=== PATIENT | male | born 2000 | race Caucasian/White ===

== ENCOUNTER 2019-11-23 19:35 | Emergency (ER) | payer MEDICAID, OTHER ==
[~2019-11-23] VITALS: Ht 165.1 cm; Wt 53.4 kg
[~2019-11-23 19:35] MED LIST: HYDR28CR33 TP; ONDA8TAB6 PO; PRED5SOL10 PO; vistaril
[2019-11-23 20:28] LABS: BASOPHILS % (AUTO) 0.2 % (0-1); EOSINOPHILS % (AUTO) 0.5 % (0-6); HEMATOCRIT 48.4 % (42.0-52.0); HEMOGLOBIN 16.7 g/dl (14.0-17.9); LYMPHOCYTES # (AUTO) 1.4 X10'3 (1.1-4.8); MEAN CORPUSCULAR HEMOGLOBIN 29.8 PG (27.0-31.0); MEAN CORPUSCULAR HGB CONC 34.5 g/dL (33.0-36.5); MEAN CORPUSCULAR VOLUME 86.3 FL (78-98); MONOCYTES # (AUTO) 0.8 X10'3 (0-0.9); MONOCYTES % (AUTO) 9.5 % (2-12); NEUTROPHILS # (AUTO) 5.7 X10'3 (1.8-7.7); NEUTROPHILS % (AUTO) 71.8 % (42-75); PLATELET COUNT 256 X10'3 (140-440); RED CELL DISTRIBUTION WIDTH 13.2 % (11.5-14.5); WHITE BLOOD COUNT 7.9 X10'3 (4.5-11.0)
[2019-11-23 20:35] LABS: ALANINE AMINOTRANSFERASE 12 U/L (12-78); ALBUMIN 4.7 G/DL (3.4-5.0); ALBUMIN/GLOBULIN RATIO 1.5 (1.1-1.5); ALKALINE PHOSPHATASE 80 IU/L (20-180); ANION GAP 5 (8-16); ASPARTATE AMINO TRANSFERASE 9 U/L (10-37); BILIRUBIN,TOTAL 1.4 MG/DL (0.1-1.0); BLOOD UREA NITROGEN 13 MG/DL (7-18); BUN/CREATININE RATIO 14.6 (5.4-32.0); CHLORIDE 106 MMOL/L (99-107); CREATININE 0.89 MG/DL (0.60-1.10); ETHANOL < 0.010 GM/DL (0.0-0.010); GLUCOSE 95 MG/DL (70-104); POTASSIUM 3.7 MMOL/L (3.5-5.1); SODIUM 138 MMOL/L (135-145); TOTAL PROTEIN 7.9 G/DL (6.4-8.2); eGFR > 90 ML/MIN
[2019-11-23 20:41] LABS: ACETAMINOPHEN < 2.0 UG/ML (10-30)
[2019-11-23 22:42] LABS: CLARITY,URINE CLEAR (Clear); COLOR,URINE YELLOW (Yellow); GLUCOSE, URINE NEGATIVE (Neg); KETONES,URINE NEGATIVE (Neg); LEUKOCYTE ESTERASE ,URINE NEGATIVE (Neg); NITRITES, URINE NEGATIVE (Neg); OCCULT BLOOD,URINE NEGATIVE (Neg); PROTEIN,URINE NEGATIVE (Neg)
[2019-11-23 22:53] LABS: UA COLLECTION TYPE NON-SPECIFIED
[2019-11-23 22:55] LABS: URINE AMPHETAMINE SCREEN NEGATIVE (Neg); URINE BARBITUATE SCREEN NEGATIVE (Neg); URINE BENZODIAZEPINES SCREEN NEGATIVE (Neg); URINE CANNABINOID SCREEN POSITIVE (Neg); URINE COCAINE SCREEN NEGATIVE (Neg); URINE METHADONE SCREEN NEGATIVE (Neg); URINE OPIATE SCREEN NEGATIVE (Neg); URINE PHENCYCLIDINE SCREEN NEGATIVE (Neg)
--- NOTE | 2019-11-23 23:24 | NUR ---
PATIENT'S PACKET WAS SENT TO [facility].
[2019-11-24 05:20] VITALS: BP 107/53
--- NOTE | 2019-11-24 09:49 | NUR ---
5150 written, looking for placement
--- NOTE | 2019-11-24 11:00 | NUR ---
breaking primary RN, pt supine in bed asleep, regular breathing present
--- NOTE | 2019-11-24 11:36 | NUR ---
[facility] TSH requested by them and added to orders
--- NOTE | 2019-11-24 12:21 | NUR ---
Patient resting in bed with eyes closed, respirations normal.
--- NOTE | 2019-11-24 13:11 | NUR ---
Per Shannan patient will be picked up at 1330 by driver operator
== END 2019-11-24 14:00 ==
LOC: ER 19:36
DX: R45.851 Suicidal ideations (principal); R10.9 Unspecified abdominal pain; R07.89 Other chest pain; R06.02 Shortness of breath; Z72.89 Other problems related to lifestyle; Z79.899 Other long term (current) drug therapy
CPT/HCPCS: 36415; 80053; 80305; 80320; 80329; 81003; 84443; 85025; 99285

== ENCOUNTER → 2020-10-18 | Emergency (ER) | payer MEDICAID ==
[~2020-10-18] VITALS: Ht 165.1 cm; Wt 54.5 kg
[2020-10-18 06:47] VITALS: BP 120/72
[2020-10-18 09:36] LABS: BASOPHILS % (AUTO) 0.3 % (0-1); EOSINOPHILS # (AUTO) 0.1 X10'3 (0-0.9); EOSINOPHILS % (AUTO) 1.1 % (0-6); HEMATOCRIT 47.1 % (42.0-52.0); HEMOGLOBIN 16.2 g/dl (14.0-17.9); LYMPHOCYTES # (AUTO) 1.1 X10'3 (1.1-4.8); LYMPHOCYTES % (AUTO) 20.4 % (21-51); MEAN CORPUSCULAR HGB CONC 34.5 g/dL (33.0-36.5); MEAN CORPUSCULAR VOLUME 84.2 FL (78-98); MONOCYTES # (AUTO) 0.6 X10'3 (0-0.9); MONOCYTES % (AUTO) 11.5 % (2-12); NEUTROPHILS # (AUTO) 3.5 X10'3 (1.8-7.7); NEUTROPHILS % (AUTO) 66.7 % (42-75); PLATELET COUNT 208 X10'3 (140-440); RED CELL DISTRIBUTION WIDTH 13.4 % (11.5-14.5); WHITE BLOOD COUNT 5.2 X10'3 (4.5-11.0)
[2020-10-18 09:45] LABS: ALANINE AMINOTRANSFERASE 13 U/L (12-78); ALBUMIN 4.6 G/DL (3.4-5.0); ALBUMIN/GLOBULIN RATIO 1.5 (1.1-1.5); ALKALINE PHOSPHATASE 77 IU/L (46-116); ANION GAP 11 (8-16); ASPARTATE AMINO TRANSFERASE 8 U/L (10-37); BILIRUBIN,TOTAL 1.4 MG/DL (0.1-1.0); BLOOD UREA NITROGEN 20 MG/DL (7-18); BUN/CREATININE RATIO 22.5 (5.4-32.0); CHLORIDE 107 MMOL/L (99-107); CREATININE 0.89 MG/DL (0.60-1.10); GLUCOSE 97 MG/DL (70-104); POTASSIUM 4.6 MMOL/L (3.5-5.1); SODIUM 143 MMOL/L (135-145); TOTAL CARBON DIOXIDE 24.6 MMOL/L (24-32); TOTAL PROTEIN 7.7 G/DL (6.4-8.2); eGFR > 90 ML/MIN
== END | disposition home or self-care (01) ==
LOC: ER 06:24
DX: R07.89 Other chest pain (principal); Z72.89 Other problems related to lifestyle; Z79.899 Other long term (current) drug therapy
CPT/HCPCS: 36415; 71045; 80053; 84484; 85025; 93005; 99285

== ENCOUNTER 2021-02-20 06:14 | Emergency (ER) | payer MEDICAID ==
[~2021-02-20] VITALS: Ht 167.6 cm; Wt 57.2 kg
--- NOTE | 2021-02-20 06:37 | NUR ---
ROLO SEO, SISTER PHONE: [phone] PLEASE CALL PRN WITH INFO.
[2021-02-20] MEDS ORDERED: normal saline 1000ML IV soln IVB ONE (06:45)
[2021-02-20] MEDS ORDERED: metoclopramide 5 mg/ml inj IV ONE (06:45)
[2021-02-20] MEDS ORDERED: glycopyrrolate 0.2mg/ml inj IV ONE (06:45)
[2021-02-20] MEDS ORDERED: diphenhydrAMINE 50 mg/ml inj IV ONE (06:45)
[2021-02-20] MEDS ORDERED: morphine 2 MG/ML inj. syringe IV ONE (07:00)
[2021-02-20 08:01] LABS: BASOPHILS % (AUTO) 0.3 % (0-1); EOSINOPHILS # (AUTO) 0.1 X10'3 (0-0.9); EOSINOPHILS % (AUTO) 0.7 % (0-6); HEMATOCRIT 39.1 % (42.0-52.0); HEMOGLOBIN 13.8 g/dl (14.0-17.9); LYMPHOCYTES # (AUTO) 0.6 X10'3 (1.1-4.8); LYMPHOCYTES % (AUTO) 5.9 % (21-51); MEAN CORPUSCULAR HEMOGLOBIN 29.7 PG (27.0-31.0); MEAN CORPUSCULAR HGB CONC 35.2 g/dL (33.0-36.5); MEAN CORPUSCULAR VOLUME 84.2 FL (78-98); MEAN PLATELET VOLUME 7.8 FL (7.4-10.4); MONOCYTES # (AUTO) 1.1 X10'3 (0-0.9); MONOCYTES % (AUTO) 10.7 % (2-12); NEUTROPHILS # (AUTO) 8.5 X10'3 (1.8-7.7); NEUTROPHILS % (AUTO) 82.4 % (42-75); PLATELET COUNT 187 X10'3 (140-440); RED BLOOD COUNT 4.64 X10'6 (4.70-6.10); RED CELL DISTRIBUTION WIDTH 12.6 % (11.5-14.5); WHITE BLOOD COUNT 10.3 X10'3 (4.5-11.0)
[2021-02-20 08:46] LABS: ALANINE AMINOTRANSFERASE 12 U/L (12-78); ALBUMIN 3.5 G/DL (3.4-5.0); ALBUMIN/GLOBULIN RATIO 1.3 (1.1-1.5); ALKALINE PHOSPHATASE 46 IU/L (46-116); ANION GAP 9 (8-16); ASPARTATE AMINO TRANSFERASE 12 U/L (10-37); BLOOD UREA NITROGEN 13 MG/DL (7-18); BUN/CREATININE RATIO 18.6 (5.4-32.0); CALCIUM 8.1 MG/DL (8.5-10.1); CHLORIDE 110 MMOL/L (99-107); GLUCOSE 95 MG/DL (70-104); LIPASE < 50 U/L (73-393); POTASSIUM 3.7 MMOL/L (3.5-5.1); SODIUM 144 MMOL/L (135-145); TOTAL CARBON DIOXIDE 24.7 MMOL/L (24-32); TOTAL PROTEIN 6.2 G/DL (6.4-8.2); eGFR > 90 ML/MIN
[2021-02-20] MEDS ORDERED: ketorolac trometh. 30mg/ml inj. IV ONE (09:15)
[2021-02-20] MEDS ORDERED: mag hydrox/Alum hydrox/simeth 30ml oral suspension PO ONE (09:15)
[2021-02-20 09:33] LABS: CLARITY,URINE CLOUDY (Clear); COLOR,URINE YELLOW (Yellow); GLUCOSE, URINE NEGATIVE (Neg); KETONES,URINE NEGATIVE (Neg); LEUKOCYTE ESTERASE ,URINE NEGATIVE (Neg); NITRITES, URINE NEGATIVE (Neg); OCCULT BLOOD,URINE NEGATIVE (Neg); PROTEIN,URINE NEGATIVE (Neg)
[2021-02-20 09:34] LABS: UA COLLECTION TYPE CLN CATCH MIDSTREAM
[2021-02-20] MEDS ORDERED: iohexol 300mg/ml 100ml inj. ONE (09:35)
[2021-02-20 09:41] LABS: MUCUS STRANDS MANY /LPF (Neg); SQUAMOUS EPITHELIAL CELL,UR FEW /LPF (FEW)
[2021-02-20 09:42] LABS: BACTERIA,URINE 1+ /HPF (Neg); RBC,URINE 0-2 /HPF (0-2); WBC,URINE 20-30 /HPF (0-4)
[2021-02-20] MEDS ORDERED: CEPH-585 PO (10:29)
[2021-02-20] MEDS ORDERED: CefTRIAXone 2gm/D5W 50ml BAG 50 ML IV ONE (10:30)
[2021-02-20 10:48] VITALS: BP 112/71
== END 2021-02-20 10:50 | disposition home or self-care (01) ==
LOC: ER 06:14
DX: R10.9 Unspecified abdominal pain (principal)
CPT/HCPCS: 36415; 74177; 80053; 81001; 83690; 84145; 85025; 87088; 96361; 96365; 96375; 99285; J0696; J1200; J1885; J2270; J2765; J3490; J7030; Q9967